=== PATIENT | female | born 1975 | race Caucasian/White ===

== ENCOUNTER 2016-10-11 05:20 | Emergency (ER) | payer OTHER ==
[~2016-10-11] VITALS: Ht 167.6 cm; Wt 121.8 kg
[~2016-10-11 05:20] MED LIST: CITA20TA9 PO; FLNIN NAE; GLC/500 PO; IUD'IUD; MTR500 PO; SALI0.6517 NAE
[2016-10-11 05:23] VITALS: TEMP 36.6; Ht 167.6 cm; Wt 121.8 kg
[2016-10-11] MEDS ORDERED: PHENAZOPYRIDINE HCL 200 MG TAB PO ONE (05:34)
[2016-10-11] MEDS ORDERED: PHENAZOPYRIDINE HCL 200 MG TAB PO STA (05:39)
[2016-10-11] MEDS ORDERED: NITR-5 PO (05:44)
[2016-10-11] MEDS ORDERED: PHEN-876 PO (05:44)
[2016-10-11] MEDS ORDERED: PHENAZOPYRIDINE HOME PACK 200 MG VIAL PO ONE (05:45)
[2016-10-11] MEDS ORDERED: GINS1CAP PO (05:48)
[2016-10-11] MEDS ORDERED: OMEP10CA2 PO (05:49)
[2016-10-11 06:25] LABS: MANUAL MICROSCOPIC REQUIRED? NO; URINE APPEARANCE CLEAR (CLEAR); URINE BILIRUBIN NEG (NEG); URINE COLOR YELLOW; URINE NITRITE NEG (NEG); URINE SPECIFIC GRAVITY >= 1.030 (1.000-1.030); UROBILINOGEN NEG (NEG)
[2016-10-11 06:26] LABS: REVIEW REQ? NO; ZZUR CULT IF INDIC CLEAN CATCH NO
[2016-10-11] MEDS ORDERED: MACROBID 100MG HOME PACK 1 EA VIAL PO ONE (06:30)
[2016-10-11 06:35] VITALS: BP 156/93; PULSE 61; O2SAT 98
--- NOTE | 2016-10-11 06:36 | EMERGENCY ROOM VISIT NOTE ---
ED Visit Note First contact with patient: 05:28 CHIEF COMPLAINT: Frequent and painful urination HISTORY OF PRESENT ILLNESS: This 40 yo presents to the emergency department complaining of increased frequency of urination, burning pain with urination, and a feeling of incomplete voiding 2 days. The patient passes very small volumes of urine with each episode of voiding. The patient does have suprapubic abdominal pain. They deny back pain, fever, or vaginal discharge. The patient has had urinary tract infections in the past. Patient feels they are not at risk for STIs. REVIEW OF SYSTEMS: A 6 system review of systems was completed with positives and pertinent negatives listed in the HPI. ALLERGIES: none MEDICATIONS: Reviewed PMH: Medical Problems: (1) Dysmetabolic Syndrome X Status: Chronic (2) No Known Active Medical Problems Status: Chronic (3) PCOS (polycystic ovarian syndrome) Status: Chronic (4) Vertigo Status: Chronic SOCIAL HISTORY: No drug use, no tobacco use PHYSICAL EXAM: Vital Signs: Reviewed Nurse's notes, vital signs HTN. GENERAL: Pleasant female, in no acute distress, they do not appear toxic, well-developed , well-nourished. SKIN: Capillary reflex less than 2 seconds. HEENT: Normocephalic. PERRLA. EOMI. Nares patent. Mucous membranes moist. Neck is supple without nuchal rigidity. HEART: Regular rate and rhythm without murmurs gallops or rubs. LUNGS: Clear to auscultation bilaterally without wheezes, rales or rhonchi. No retractions or accessory muscle use. ABDOMEN: Positive bowel sounds x 4. The abdomen is soft, mildly tender in the suprapubic area, but no masses or organs are felt. There is no CVA tenderness. The skin is clear. NEURO: Alert and oriented to person place and time. EMERGENCY DEPARTMENT COURSE: I examined the patient. The urine dip showed no UTI. The urine was sent for culture and sensitivity as pt was having symptoms. The patient was given Pyridium. She was advised to monitor her blood pressure. She was advised if symptoms persist to follow-up urology for her urinary issues. She had no CVA tenderness. The patient was discharged home in good condition. DIAGNOSIS: Dysuria, Elevated blood pressure DISCHARGE INSTRUCTIONS & TREATMENT: Monitor your blood pressure. Pyridium 200mg: Take one pill three times daily as needed for urinary discomfort. This medication will turn your urine orange. This is normal and nothing to be concerned about. Ibuprofen(Motrin, Advil) may be used for fever or pain. Use 600mg every six hours as needed. Take with food. Avoid using more than 2400mg in a 24 hour period. Do not use 2400mg per day for more than three consecutive days without physician direction. Prolonged inappropriate use can lead to stomach upset or ulcers. (AND/OR) Acetaminophen(Tylenol) may be used for fever or pain. Use 1000mg every six hours as needed. Avoid using more than 3000mg in a 24 hour period. Rest and drink plenty of fluids as tolerated. Slow sips of water or sports drinks are recommended instead of large amounts all at once. Continue current medications. Once your stomach is settled start with a clear liquid diet (jello, soup broth, etc.) and then advance as tolerated. You should avoid full, heavy meals for about 24 hrs from the time your symptoms resolved. Return to the ER immediately for worsening or persistent abdominal/back pain, vomiting, fevers, worsening of your condition, or as needed. Follow up with your primary physician within 2-3 days for a recheck of the current condition. Problem List Medical Problems: (1) Dysmetabolic Syndrome X Status: Chronic (2) No Known Active Medical Problems Status: Chronic (3) PCOS (polycystic ovarian syndrome) Status: Chronic (4) Vertigo Status: Chronic Current/Historical Medications Scheduled Citalopram Hydrobromide (Celexa), 20 MG PO DAILY Ginseng (Ginseng), Unknown Dose PO DAILY Metformin Hcl (Glucophage), 500 MG PO BID Metronidazole (Metronidazole), 500 MG PO TID Omeprazole (Prilosec), 10 MG PO DAILY Phenazopyridine HCl (Pyridium), 200 MG PO TID Miscellaneous Medications Iud's (Paragard Intrauterine Outside Upholsterer) Allergies Coded Allergies: No Known Allergies (Verified , 10/11/16) Vital Signs Date Time Temp Pulse Resp B/P Pulse Ox O2 Delivery O2 Flow Rate FiO2 10/11/16 06:04 64 18 198/111 99 Room Air 10/11/16 05:23 36.6 66 18 170/95 98 Room Air Laboratory Results Test 10/11/16 05:55 Urine Color YELLOW Urine Appearance CLEAR (CLEAR) Urine pH 5.0 (4.5-7.5) Urine Specific [place] >= 1.030 (1.000-1.030) Urine Protein NEG (NEG) Urine Glucose (UA) NEG (NEG) Urine Ketones NEG (NEG) Urine Occult Blood NEG (NEG) Urine Nitrite NEG (NEG) Urine Bilirubin NEG (NEG) Urine Urobilinogen NEG (NEG) Urine Leukocyte Esterase NEG (NEG) Urine Test NEG (NEG) Medications Administered Medications (Trade) Dose Ordered Sig/[place] Route Start Time Stop Time Status Last Admin Dose Admin Phenazopyridine HCl (Pyridium Tab) 200 mg STK-MED ONCE PO 10/11/16 05:34 10/11/16 05:36 DC 10/11/16 05:39 200 MG Departure Information Prescriptions Phenazopyridine HCl (Pyridium) 200 Mg Tab 200 MG PO TID for 2 Days, #6 TAB Prov: Susan Powell ., CHET 10/11/16 Referrals Jazmin Mccoy D.O. (PCP) Patient Instructions A Signature Page, My [facility]
== END 2016-10-11 06:35 | disposition home or self-care (01) ==
LOC: C.EDB 05:22
DX: R30.0 Dysuria (principal); R03.0 Elevated blood-pressure reading, without diagnosis of hypertension; E88.81 Metabolic syndrome and other insulin resistance; Z79.899 Other long term (current) drug therapy

== ENCOUNTER → 2017-02-20 | Outpatient (CLI) | payer OTHER ==
[~2017-02-20] MED LIST changes: -FLNIN NAE; +GINS1CAP PO; +OMEP10CA2 PO; -SALI0.6517 NAE
[2017-02-20 13:56] LABS: ESTIMATED AVERAGE GLUCOSE 120 mg/dl; HA1C FLAG Normal (Normal)
[2017-02-20 14:06] LABS: BLOOD UREA NITROGEN 12 mg/dl (7-18); BUN/CREATININE RATIO 14.1 (10-20); CARBON DIOXIDE 29 mmol/L (21-32); CHLORIDE 107 mmol/L (98-107); CREATININE 0.86 mg/dl (0.60-1.20); GLUCOSE 89 mg/dl (70-99); POTASSIUM 4.5 mmol/L (3.5-5.1); SODIUM 143 mmol/L (136-145)
[2017-02-20 14:08] LABS: CHOLESTEROL 183 mg/dl (0-200); CHOLESTEROL/HDL RATIO 3.7; HDL CHOLESTEROL 49 mg/dl; LDL CHOLESTEROL CALCULATED 103 mg/dl; TRIGLYCERIDES 154 mg/dl (0-150); VERY LOW DENSITY LIPOPROT CALC 31 mg/dl
== END | disposition home or self-care (01) ==
LOC: C.LAB 12:04
PROVIDERS: ATTEND Student in an Organized Health Care Education/Training Program
DX: Z13.220 Encounter for screening for lipoid disorders (principal); E28.2 Polycystic ovarian syndrome; E66.01 Morbid (severe) obesity due to excess calories